=== PATIENT | male | born 1985 | race Caucasian/White ===

== ENCOUNTER 2024-01-10 07:28 | Day surgery (SDC) | payer OTHER ==
[~2024-01-10] VITALS: Ht 182.9 cm; Wt 137.5 kg
[~2024-01-10 07:28] MED LIST: Desyrel50 MG PO
[2024-01-10] MEDS ORDERED: OMEP20ER (07:43)
[2024-01-10] MEDS ORDERED: Lactated Ringer's 1,000 ML IV ONE (08:18)
[2024-01-10] MEDS ORDERED: propofoL 0 ML IV ONE ×2 (08:39→08:46)
[2024-01-10 09:24] VITALS: BP 119/77
== END 2024-01-10 09:32 | disposition home or self-care (01) ==
LOC: ORSCSDS 07:28
PROVIDERS: Internal Medicine Gastroenterology
PROC: 0DB58ZX Excision of Esophagus, Via Natural or Artificial Opening Endoscopic, Diagnostic (ICD-10-PCS; principal; 2024-01-10 08:45)
DX: K21.00 Gastro-esophageal reflux disease with esophagitis, without bleeding (principal); K44.9 Diaphragmatic hernia without obstruction or gangrene; I10 Essential (primary) hypertension; G47.33 Obstructive sleep apnea (adult) (pediatric); E66.01 Morbid (severe) obesity due to excess calories; Z68.41 Body mass index [BMI] 40.0-44.9, adult; Z87.891 Personal history of nicotine dependence; Z79.899 Other long term (current) drug therapy
CPT/HCPCS: 88305; 88312; J2704; J7120